=== PATIENT | male | born 1960 | race Two or more races ===

== ENCOUNTER → 2020-10-02 | Outpatient (CLI) | payer MEDICARE ==
[2015-11-11 09:00] VITALS: BP 137/64
--- NOTE | 2020-10-02 10:08 | RAD ---
EXAM: LOWER EXTREMITY ARTERIAL DOPPLER SONOGRAM WITH ANKLE-BRACHIAL INDICES ([place]). HISTORY: Decreased lower extremity pulses. TECHNIQUE: Grayscale and Doppler sonographic evaluation of the lower extremities was performed and pr essure readings were assessed. FINDINGS: On the right, there are triphasic waveforms throughout. On the left, there are triphasic waveforms through the trifurcation vessels. The left dorsalis pedis waveform is at least biphasic and possibly triphasic. There are no elevated peak systolic velocities bilaterally. Right brachial pressure: 116 mmHg Left brachial pressure: 117 mmHg Right ankle pressure: 147 mmHg Right ankle [place]: 1.3 Left ankle pressure: 148 mmHg Left ankle [place]: 1.3 IMPRESSION: 1. No evidence of significantly flow-limiting stenosis bilaterally. There may be mildly flow-limiting stenosis within the left distal anterior tibial artery. Electronically signed by: Salome Chung MD (10/02/2020 10:05 AM) [id number]
== END ==
LOC: US 08:54
PROVIDERS: ATTEND Nurse Practitioner Gerontology
DX: R09.89 Other specified symptoms and signs involving the circulatory and respiratory systems (principal)
CPT/HCPCS: 93922; 93925

== ENCOUNTER → 2020-10-27 | Outpatient (CLI) | payer MEDICARE ==
[2015-11-11 09:00] VITALS: BP 137/64
--- NOTE | 2020-10-27 16:00 | KCIC ---
EXAM: Lumbar spine, 3 views. HISTORY: Pain. Foot numbness. COMPARISON: None. FINDINGS: 3 views of the lumbar spine are obtained. There is dextroscoliosis centered at L2-L3. There is minimal retrolisthesis of L2 on L3 and L3 on L4. There is multilevel endplate remodeling with dis c space narrowing, osteophytosis and facet arthropathy. The endplate remodeling and disc space narrow ing is most significant along the left aspect of L2-L3 and L3-L4 and right aspect of L4-L5. This corey esponds with the levels of maximum scoliotic concavity There are several endplate Schmorl's nodes. IMPRESSION: 1. Multilevel degenerative change, described in detail above. 2. No acute osseous finding. Electronically signed by: Hanane Tompkins MD (10/27/2020 3:58 PM) [id number]
== END ==
LOC: KCIC 14:51
PROVIDERS: ATTEND Family Medicine
DX: M47.816 Spondylosis without myelopathy or radiculopathy, lumbar region (principal); M41.86 Other forms of scoliosis, lumbar region; M51.46 Schmorl's nodes, lumbar region; M25.78 Osteophyte, vertebrae
CPT/HCPCS: 72100